=== PATIENT | female | born 1990 | race Caucasian/White ===

== ENCOUNTER 2020-08-20 21:47 | Emergency (ER) | payer BC ==
[2020-08-20] MEDS ORDERED: NORMAL SALINE 1000 ML 1,000 ML IV ONE (22:17)
--- NOTE | 2020-08-20 22:23 | ER Document Report ---
ED Medical Screen (RME) - General Chief Complaint: Blood Pressure Problem Stated Complaint: SENT BY URGENT CARE SORE THROAT FEVER LOW PRESSURE Time Seen by Provider: 08/20/20 22:03 Primary Care Provider: BLUE FOX MD [Primary Care Provider] - Follow up as needed - HPI Notes: Patient is a 29 y/o famale who presents with sore throat for two days. Patient has been seen by urgent care and had a negative COVID, flu and strep swab today. She endorses fever, myalgias, nasal congestion and swollen lymph nodes. She has been taking tylenol with fever and sore throat relief. Patient was prescribe keflex and has taken two doses. Patient is requesting blood work and mono test. She is currently . - Related Data Allergies/Adverse Reactions: azithromycin [Azithromycin] Allergy (Verified 08/20/20 22:12) muscle tense,skin pain perfumes Allergy (Unknown, Uncoded 02/10/14 14:06) Hives Home Medications: ANTI-BIOTICS Past Medical History - Social History Frequency of alcohol use: None Drug Abuse: None - Past Medical History Cardiac Medical History: Denies: Hx Coronary Artery Disease, Hx Heart Attack, Hx Hypertension Pulmonary Medical History: Reports: Hx Asthma - NO RECENT ER/ADMISSION, Hx Bronchitis, Hx Pneumonia Denies: Hx COPD Neurological Medical History: Denies: Hx Cerebrovascular Accident, Hx Seizures Musculoskeltal Medical History: Reports Hx Arthritis - Hip and Back, Reports Hx Musculoskeletal Deformity, Reports Hx Musculoskeletal Trauma Psychiatric Medical History: Reports: Hx Depression Past Surgical History: Reports: Hx Gynecologic Surgery - D&C x 3, Hx Orthopedic Surgery - right hip, Hx Tonsillectomy. Denies: Hx Pacemaker - Immunizations Immunizations up to date: Yes Hx Diphtheria, Pertussis, Tetanus Vaccination: Yes Review of Systems - Review of Systems Constitutional: See HPI EENT: See HPI Cardiovascular: No symptoms reported Respiratory: No symptoms reported Gastrointestinal: No symptoms reported Genitourinary: No symptoms reported Female Genitourinary: No symptoms reported Musculoskeletal: No symptoms reported Skin: No symptoms reported Hematologic/Lymphatic: No symptoms reported Neurological/Psychological: No symptoms reported Physical Exam - Vital signs Vitals: Temp Pulse Resp BP Pulse Ox 99.3 F 105 H 17 119/71 98 08/20/20 21:53 08/20/20 21:53 08/20/20 21:53 08/20/20 21:53 08/20/20 21:53 - HEENT Head: Normocephalic, Atraumatic Mouth/Lips: Normal Mucous membranes: Normal Pharynx: Erythema, Exudate Neck: Lymphadenopathy - Right anterior cervical Course - Re-evaluation Re-evalutation: I feel patient is stable for discharge but she is requesting further workup. I have greeted and performed a rapid initial assessment of this patient. A comprehensive ED assessment and evaluation of the patient, analysis of test results and completion of medical decision making process will be conducted by an additional ED providers. - Vital Signs Vital signs: Temp Pulse Resp BP Pulse Ox 99.3 F 105 H 17 119/71 98 08/20/20 21:53 08/20/20 21:53 08/20/20 21:53 08/20/20 21:53 08/20/20 21:53 Doctor's Discharge - Discharge Referrals: BLUE FOX MD [Primary Care Provider] - Follow up as needed
[2020-08-20 22:54] LABS: ABSOLUTE LYMPHOCYTES (AUTO) 1.9 10^3/uL (0.5-4.7); ABSOLUTE MONOCYTES (AUTO) 0.9 10^3/uL (0.1-1.4); ABSOLUTE NEUT (AUTO) 5.4 10^3/uL (1.7-8.2); BASOPHILS % (AUTO) 0.2 % (0-2); EOSINOPHILS % (AUTO) 0.1 % (0-6); HEMATOCRIT 38.4 % (36.0-47.0); HEMOGLOBIN 13.1 g/dL (12.0-15.5); LYMPHOCYTES % (AUTO) 22.6 % (13-45); MEAN CORPUSCULAR HEMOGLOBIN 28.6 pg (27.0-33.4); MEAN CORPUSCULAR VOLUME 84 fl (80-97); PLATELET COUNT 273 10^3/uL (150-450); RED BLOOD COUNT 4.57 10^6/uL (3.72-5.28); RED CELL DISTRIBUTION WIDTH 14.5 % (11.5-14.0); SEGMENTED NEUTROPHILS % (AUTO) 66.1 % (42-78); TOTAL CELLS COUNTED % (AUTO) 100 %; WHITE BLOOD COUNT 8.2 10^3/uL (4.0-10.5)
[2020-08-20 23:03] LABS: ALBUMIN 4.5 g/dL (3.5-5.0); ALKALINE PHOSPHATASE 100 U/L (38-126); ANION GAP 12 (5-19); ASPARTATE AMINO TRANSFERASE 25 U/L (14-36); BILIRUBIN,DIRECT 0.1 mg/dL (0.0-0.4); BILIRUBIN,TOTAL 0.6 mg/dL (0.2-1.3); BLOOD UREA NITROGEN 11 mg/dL (7-20); CALCIUM 9.3 mg/dL (8.4-10.2); CARBON DIOXIDE 24 mmol/L (22-30); CHLORIDE 103 mmol/L (98-107); GLUCOSE 126 mg/dL (75-110); POTASSIUM 3.9 mmol/L (3.6-5.0); TOTAL PROTEIN 7.1 g/dL (6.3-8.2)
--- NOTE | 2020-08-20 23:45 | ER Document Report ---
ED General - General Chief Complaint: Blood Pressure Problem Stated Complaint: SENT BY URGENT CARE SORE THROAT FEVER LOW PRESSURE Time Seen by Provider: 08/20/20 22:03 Primary Care Provider: BLUE FOX MD [EMERITUS] - Follow up as needed - HPI Notes: Patient is a 29 y/o famale with a hx of ankylosing spondylitis who presents with sore throat for two days. Patient has been seen by urgent care and had a negative COVID, flu and strep swab today. She endorses fever, myalgias, nasal congestion and swollen lymph nodes. She has been taking tylenol with fever and sore throat relief. Patient was prescribe keflex and has taken two doses. Patient was told by urgent care to come to the ED due to hypotension with a negative workup for further evaluation. Patient is requesting blood work and mono test. She is currently . Patient currently takes Humira. - Related Data Allergies/Adverse Reactions: azithromycin [Azithromycin] Allergy (Verified 08/20/20 22:12) muscle tense,skin pain perfumes Allergy (Unknown, Uncoded 02/10/14 14:06) Hives Home Medications: ANTI-BIOTICS Past Medical History - General Information source: Patient - Social History Smoking Status: Never Smoker Frequency of alcohol use: None Drug Abuse: None Family History: Reviewed & Not Pertinent - Past Medical History Cardiac Medical History: Denies: Hx Coronary Artery Disease, Hx Heart Attack, Hx Hypertension Pulmonary Medical History: Reports: Hx Asthma - NO RECENT ER/ADMISSION, Hx Bronchitis, Hx Pneumonia Denies: Hx COPD Neurological Medical History: Denies: Hx Cerebrovascular Accident, Hx Seizures Musculoskeletal Medical History: Reports Hx Arthritis - Hip and Back, Reports Hx Musculoskeletal Deformity, Reports Hx Musculoskeletal Trauma Psychiatric Medical History: Reports: Hx Depression Past Surgical History: Reports: Hx Gynecologic Surgery - D&C x 3, Hx Orthopedic Surgery - right hip, Hx Tonsillectomy. Denies: Hx Pacemaker - Immunizations Immunizations up to date: Yes Hx Diphtheria, Pertussis, Tetanus Vaccination: Yes Review of Systems - Review of Systems Constitutional: See HPI EENT: See HPI Cardiovascular: No symptoms reported Respiratory: No symptoms reported Gastrointestinal: No symptoms reported Genitourinary: No symptoms reported Female Genitourinary: No symptoms reported Musculoskeletal: No symptoms reported Skin: No symptoms reported Hematologic/Lymphatic: No symptoms reported Neurological/Psychological: No symptoms reported Physical Exam - Vital signs Vitals: Temp Pulse Resp BP Pulse Ox 99.3 F 105 H 17 119/71 98 08/20/20 21:53 08/20/20 21:53 08/20/20 21:53 08/20/20 21:53 08/20/20 21:53 - Notes Notes: PHYSICAL EXAMINATION: VITALS: Vitals reviewed and within normal limits. GENERAL: Well-appearing, well-nourished and in no acute distress. HEAD: Atraumatic, normocephalic. ENT: Moist mucous membranes. Eythrematous oropharynx with swelling. NECK: Supple with full ROM. Palpable lymphadenopathy to the right anterior cervical lymph node. LUNGS: Breath sounds clear to auscultation bilaterally and equal. No wheezes rales or rhonchi. HEART: Regular rate and rhythm without murmurs. ABDOMEN: Soft, nontender, normoactive bowel sounds. No guarding, no rebound. No masses appreciated. PSYCH: Normal mood, normal affect. SKIN: Warm, Dry, normal turgor, no rashes or lesions noted. Course - Re-evaluation Re-evalutation: Patient is a 29 y/o female who presents with sore throat and fever for the past 2 days. Patient had COVID, rapid flu and strep testing today which were all negative. Vital signs are within normal limits and patient is afebrile. On exa m, oropharynx is erythematous and edematous. I felt the patient was safe for discharge but she requested blood work and mono testing. CBC and CMP unremarkable and within normal limits. Monospot negative. I discussed results with the patient and her symptoms and workup are consistent with viral pha ryngitis. Patient will be discharged home. Return precautions and follow up instructions given. Patient understands and is in agreement with the plan. - Vital Signs Vital signs: Temp Pulse Resp BP Pulse Ox 99.3 F 78 16 117/85 100 08/20/20 21:53 08/20/20 23:58 08/20/20 23:58 08/20/20 23:58 08/20/20 23:58 - Laboratory Result Diagrams: 08/20/20 22:20 08/20/20 22:26 Laboratory results interpreted by me: 08/20/20 08/20/20 22:20 22:26 RDW 14.5 H Glucose 126 H Discharge - Discharge Clinical Impression: Viral pharyngitis, Sore throat, Lymphadenopathy Condition: Stable Disposition: HOME, SELF-CARE Additional Instructions: Sore Throat Sore throats may be caused by viruses, bacteria, or fungi. Most are due to a virus, and must get better on their own. Bacterial sore throats, particularl y those due to "strep," need treatment with antibiotics. If an antibiotic is prescribed, be sure to take the medication for a full 10 days. Failure to take the antibiotic can result in complications such as rheumatic fever. Sometimes, an injection of antibiotics is given instead of pills or liquid. This single "shot" is equal in effectiveness to the oral medication. To relieve symptoms, take acetaminophen for pain. Sip clear liquids frequently, or eat popsicles or ice chips. Anesthetic sprays or lozenges may help. Make sure the air in the room is not too dry. Avoid using decongestants or antihistamines. Call the doctor if there is no improvement in two days, or if you have difficulty breathing, increasing throat pain, high fever, rash, or frequent vomiting. Referrals: BLUE FOX MD [EMERITUS] - Follow up as needed
[2020-08-20 23:59] VITALS: BP 117/85
== END 2020-08-21 00:16 | disposition home or self-care (01) ==
LOC: ER 21:47
DX: J02.9 Acute pharyngitis, unspecified (principal); R59.1 Generalized enlarged lymph nodes; R50.9 Fever, unspecified; Z88.3 Allergy status to other anti-infective agents
CPT/HCPCS: 36415; 80053; 85025; 86308; 99283